=== PATIENT | male | born 1950 | race Caucasian/White ===

== ENCOUNTER 2018-03-13 06:39 | Inpatient (IN) | payer OTHER ==
[2018-03-13] MEDS ORDERED: BUPIVACAINE 0.75%/DEXT (SPINAL) 2 ML INJ (07:00)
[2018-03-13] MEDS ORDERED: SENNA/DOCUSATE NA (8.6MG/50MG) TAB PO (08:00)
[2018-03-13] MEDS ORDERED: BISACODYL 10 MG SUPP PR (08:00)
[2018-03-13] MEDS ORDERED: DIPHENHYDRAMINE 50 MG INJ IV ×2 (08:00→09:00)
[2018-03-13] MEDS ORDERED: BETHANECHOL 25 MG TAB PO (08:00)
[2018-03-13] MEDS ORDERED: NALOXONE (0.4 MG/ML) INJ IV ×2 (08:00→11:30)
[2018-03-13] MEDS: ASPIRIN (EC) 325 MG TAB PO (08:00)
[2018-03-13] MEDS: DOCUSATE SODIUM 100 MG CAP PO (08:00)
[2018-03-13] MEDS ORDERED: NA PHOSPHATE/BIPHOS 133 ML ENEMA PR (08:00)
[2018-03-13] MEDS ORDERED: oxyCODONE 5 MG TAB PO ×2 (08:00)
[2018-03-13] MEDS ORDERED: MAGNESIUM HYDROXIDE 30ML CUP PO (08:00)
[2018-03-13] MEDS ORDERED: PROPOFOL 20 ML (08:52)
[2018-03-13] MEDS ORDERED: ROCURONIUM 50 MG INJ (08:52)
[2018-03-13] MEDS ORDERED: FENTAnyl 50 MCG/ML VIAL (08:52)
[2018-03-13] MEDS ORDERED: CEFAZOLIN 1 GM INJ (08:52)
[2018-03-13] MEDS ORDERED: ONDANSETRON 4 MG INJ (08:52)
[2018-03-13] MEDS ORDERED: NEOSTIGMINE 3 MG/3 ML SYRINGE (08:52)
[2018-03-13] MEDS ORDERED: DEXAMETHASONE 4 MG/ML 1 ML INJ (08:52)
[2018-03-13] MEDS ORDERED: MIDAZOLAM 1 MG/ML 2 ML INJ (08:52)
[2018-03-13] MEDS ORDERED: GLYCOPYRROLATE 0.4 MG INJ (08:52)
[2018-03-13] MEDS ORDERED: morphine SULFATE/PF (10 MG/10 ML) INJ (08:53)
[2018-03-13] MEDS ORDERED: MEPERIDINE 25 MG INJ IV (09:00)
[2018-03-13] MEDS ORDERED: IPRATROPIUM (NEB) 0.5 MG/2.5 ML AMP HHN (09:00)
[2018-03-13] MEDS ORDERED: MIDAZOLAM 1 MG/ML 2 ML INJ IV (09:00)
[2018-03-13] MEDS ORDERED: OXYCODONE/ACETAMINOPHEN (5/325) TAB PO ×2 (09:00)
[2018-03-13] MEDS ORDERED: hydrALAzine 20 MG INJ IV (09:00)
[2018-03-13] MEDS ORDERED: HYDROmorphONE 1 MG/5 ML IV SYRINGE IV ×3 (09:00)
[2018-03-13] MEDS ORDERED: LABETALOL HCL 20MG INJ IV (09:00)
[2018-03-13] MEDS ORDERED: FENTAnyl 50 MCG/ML VIAL IV ×3 (09:00)
[2018-03-13] MEDS ORDERED: ALBUTEROL 0.083% (NEB) 2.5 MG/3 ML AMP HHN (09:00)
[2018-03-13] MEDS ORDERED: ONDANSETRON 4 MG INJ IV (09:00)
[2018-03-13] MEDS ORDERED: EPHEDrine SULFATE 50 MG/5 ML SYG IV (09:00)
[2018-03-13] MEDS ORDERED: TRIMETHOBENZAMIDE 100 MG/ML VIAL IM (09:00)
[2018-03-13] MEDS: CEFAZOLIN 2 GM/50 ML (PMX) 50 ML (FOR WT < 120 KG) IVPB (09:12)
[2018-03-13] MEDS ORDERED: ROPIVACAINE 0.5 % 30 ML VIAL (09:37)
[2018-03-13] MEDS: POLYMYXIN B 500000 UNIT INJ (09:48)
[2018-03-13] MEDS: BACITRACIN 50000 UNITS INJ (09:48)
[2018-03-13] MEDS: TRANEXAMIC ACID 1,000 MG in D5W 100 ML AT INCISION X1 IVPB (11:00)
[2018-03-13] MEDS: TRANEXAMIC ACID 1,000 MG in D5W 100 ML AT CLOSURE X1 IVPB (11:00)
[2018-03-13] MEDS ORDERED: SUGAMMADEX SODIUM 200 MG/2 ML VIAL IV (11:09)
[2018-03-13] MEDS: CELECOXIB 100 MG CAP PO ×2 (12:00→21:00)
[2018-03-13] MEDS: SOD CHLORIDE 0.9% 1,000 ML IV ×3 (13:45→23:02)
[2018-03-13] MEDS: ONDANSETRON 4 MG INJ IV ×3 (14:00→20:00)
[2018-03-13] MEDS: GABAPENTIN 100 MG CAP PO ×2 (15:58→20:17)
[2018-03-13] MEDS: CEFAZOLIN 1 GM/50 ML (PMX) 50 ML IVPB (18:20)
[2018-03-14] MEDS: ONDANSETRON 4 MG INJ IV (02:00)
[2018-03-14] MEDS: CEFAZOLIN 1 GM/50 ML (PMX) 50 ML IVPB ×2 (02:49→11:21)
[2018-03-14 05:06] LABS: ADD MAN DIFF? NO
[2018-03-14 05:10] LABS: ABNORMAL IP MESSAGE 1; BASOPHILS % 0.1 % (0.0-2.0); HEMATOCRIT 34.1 % (42.0-52.0); HEMOGLOBIN 11.4 g/dl (14.0-18.0); LYMPHOCYTES % 13.7 % (15.0-51.0); MEAN CORPUSCULAR HEMOGLOBIN 31.6 pg (29.0-33.0); MEAN CORPUSCULAR HGB CONC 33.4 g/dl (32.0-37.0); MEAN CORPUSCULAR VOLUME 94.5 fl (82.0-101.0); MEAN PLATELET VOLUME 12.7 fl (7.4-10.4); MONOCYTE # 0.6 10^3/ul (0.3-0.9); MONOCYTES % 8.4 % (0.0-11.0); NEUTROPHIL # 5.8 10^3/ul (1.6-7.5); NEUTROPHILS % 77.5 % (39.0-77.0); PLATELET COUNT 86 10^3/UL (140-415); POSITIVE DIFF @See below; RED BLOOD COUNT 3.61 10^6/ul (4.70-6.10)
[2018-03-14 05:10] LABS: WHITE BLOOD COUNT 7.4 10^3/ul (4.8-10.8)
[2018-03-14 05:36] LABS: ANION GAP 10 (8-16); BLOOD UREA NITROGEN 15 mg/dl (7-20); CALCIUM 8.6 mg/dl (8.4-10.2); CARBON DIOXIDE 29 mmol/L (21-31); CHLORIDE 105 mmol/L (97-110); CREATININE 0.96 mg/dl (0.61-1.24); GLUCOSE 100 mg/dl (70-220); POTASSIUM 4.5 mmol/L (3.5-5.1); SODIUM 139 mmol/L (135-144)
[2018-03-14] MEDS: CELECOXIB 100 MG CAP PO (08:16)
[2018-03-14] MEDS: GABAPENTIN 100 MG CAP PO (08:17)
[2018-03-14] MEDS: FERROUS FUMARATE (SR) TAB PO (08:17)
[2018-03-14] MEDS: DOCUSATE SODIUM 100 MG CAP PO (08:17)
[2018-03-14] MEDS: ASPIRIN (EC) 325 MG TAB PO (08:17)
[2018-03-14] MEDS: SOD CHLORIDE 0.9% 1,000 ML IV (08:33)
[2018-03-14] MEDS: oxyCODONE 5 MG TAB PO (11:13)
[2018-03-14] MEDS ORDERED: HYDROCODONE/APAP (5/325) TAB PO (12:00)
[2018-03-14] MEDS: HYDROCODONE/APAP (5/325) TAB PO (12:01)
[2018-03-15] MEDS ORDERED: PANTOPRAZOLE (EC) 40 MG TAB PO (06:00)
== END 2018-03-14 15:00 | disposition home or self-care (01) | DRG 470 ==
LOC: REC 06:39 → MS1 13:39
PROC: 0SRC0J9 Replacement of Right Knee Joint with Synthetic Substitute, Cemented, Open Approach (ICD-10-PCS; principal; 2018-03-13 08:30)
DX: M17.11 Unilateral primary osteoarthritis, right knee (principal); F33.9 Major depressive disorder, recurrent, unspecified; N40.0 Benign prostatic hyperplasia without lower urinary tract symptoms; D69.6 Thrombocytopenia, unspecified; D64.9 Anemia, unspecified; Z85.72 Personal history of non-Hodgkin lymphomas
CPT/HCPCS: 71045; 73560; 80048; 85025; 86850; 86900; 86901; 87081; 88304; 97116; 97161; 97166; 97530; 97535